=== PATIENT | male | born 1960 | race Caucasian/White ===

== ENCOUNTER 2017-02-25 12:36 | Emergency (ER) | payer OTHER ==
[~2017-02-25] VITALS: Ht 160 cm; Wt 68.0 kg
[2017-02-25 13:20] VITALS: BP 109/68
--- NOTE | 2017-02-25 16:51 | NUR ---
Patient ambulated to bed 05.
--- NOTE | 2017-02-25 17:00 | NUR ---
56/M BIB HERE FOR C/O BLOODY DIARRHEA SINCE THIS AM. PT STATES HE STARTED W/DIARRHEA 2 DAYS AGO AND HAS NOW BECOME BLOODY. PT DENIES ANY MEDICAL HX. DENIES N/V/FEVER. ABD SOFT AND AND NON TENDER. SKIN IS APPEARS SLIGHTLY PALE; AAOX4 WITH EVEN AND STEADY GAIT; LUNGS CLEAR BL; HR EVEN AND REGULAR; PT DENIES ANY FEVER, CP, SOB, OR COUGH AT THIS TIME; VSS; PATIENT POSITIONED FOR COMFORT; HOB ELEVATED; BEDRAILS UP X2; BED DOWN. ER MD MADE AWARE OF PT STATUS.
--- NOTE | 2017-02-25 17:45 | NUR ---
ABHINAV HOPKINS AT BEDSIDE.
[2017-02-25] MEDS ORDERED: NACL 0.9% 1,000 ML IV ONE (18:15)
--- NOTE | 2017-02-25 18:20 | NUR ---
20G IV TO RAC. BLOOD DRAWN FOR LABS. PT MARIA VICTORIA WELL. IV PATENT AND INTACT. IVF GIVEN PER MAR.
[2017-02-25 18:29] LABS: BASOPHILS # (AUTO) 0.1 K/uL (0.00-0.22); BASOPHILS % (AUTO) 1.1 % (0.0-2.0); EOSINOPHILS # (AUTO) 0.2 K/uL (0-0.4); EOSINOPHILS % (AUTO) 3.9 % (0.0-4.0); HEMATOCRIT 45.1 % (36-52); LYMPHOCYTES # (AUTO) 1.3 K/uL (2.0-11.5); LYMPHOCYTES % (AUTO) 26.2 % (20.5-51.1); MEAN CORPUSCULAR HEMOGLOBIN 31 pg (27-31); MEAN CORPUSCULAR HGB CONC 33 g/dL (33-37); MEAN CORPUSCULAR VOLUME 94 fL (80-94); MONOCYTES # (AUTO) 0.6 K/uL (0.8-1.0); MONOCYTES % (AUTO) 12.2 % (1.7-9.3); NEUTROPHILS # (AUTO) 2.9 K/uL (1.8-7.7); NEUTROPHILS % (AUTO) 56.6 % (42.2-75.2); PLATELET COUNT (AUTO) 261 K/uL (140-450); RED CELL DISTRIBUTION WIDTH 12.3 % (11.6-13.7); WHITE BLOOD COUNT (AUTO) 5.1 K/uL (4.8-10.8)
[2017-02-25 18:41] LABS: ANION GAP 9.9 (8-16); CALCIUM 8.5 mg/dL (8.5-10.1); CARBON DIOXIDE 30.6 mmol/L (21-32); CREATININE 0.9 mg/dL (0.6-1.3); POTASSIUM 4.5 mmol/L (3.5-5.1)
[2017-02-25 18:47] LABS: ALBUMIN 3.4 g/dL (3.4-5.0); PHOSPHORUS 3.8 mg/dL (2.5-4.9); TOTAL BILIRUBIN 0.4 mg/dL (0.0-1.0); TOTAL PROTEIN, SERUM 6.6 g/dL (6.4-8.2)
--- NOTE | 2017-02-25 19:07 | NUR ---
REPORT GIVEN TO TOMMY MONTEIRO.
--- NOTE | 2017-02-25 19:19 | NUR ---
Patient discharged with v/s stable. Written and verbal after care instructions given and explained. Patient alert, oriented and verbalized understanding of instructions. Ambulatory with steady gait WITH . All questions addressed prior to discharge. ID band removed. Patient advised to follow up with PMD. Opportunity to ask questions provided and answered.
[2017-02-25 19:21] VITALS: BP 131/73
== END 2017-02-25 19:21 | disposition home or self-care (01) ==
LOC: MED 12:36
DX: R19.7 Diarrhea, unspecified (principal); R50.9 Fever, unspecified; R73.9 Hyperglycemia, unspecified
CPT/HCPCS: 36415; 80053; 82272; 83735; 84100; 85025; 87045; 87070; 87427; 89055; 96360; 99284; J7030

== ENCOUNTER 2019-01-20 15:08 | Emergency (ER) | payer OTHER ==
[~2019-01-20] VITALS: Ht 160 cm; Wt 71.2 kg
[2019-01-20 15:17] VITALS: BP 110/82
--- NOTE | 2019-01-20 15:23 | NUR ---
PATIENT AMBULATED TO BED 8.
[2019-01-20] MEDS ORDERED: KETOROLAC 60 MG/2 ML VIAL IM ONE (15:30)
--- NOTE | 2019-01-20 15:30 | NUR ---
C/O LOW BACK PAIN S/P LIFTING/MOVING "BIG SAFE"; PT STATES HE TOOK A FEW 800MG IBUPROFEN BUT THEY ARE NOT HELPING. PT WALKING VERY SLOW. PAIN 9/10, CONSTANT, INCREASES WITH MOVEMENT. HX: DENIES RX: DENIES, OTC IBUPROFEN
--- NOTE | 2019-01-20 15:56 | NUR ---
Pt refuse Toradol IM medication. Per pt he does not want "shots. Dr Maria notified
--- NOTE | 2019-01-20 16:33 | NUR ---
Dr quiros evaluating AAO pt with family at bedside
[2019-01-20 16:50] VITALS: BP 107/70
--- NOTE | 2019-01-20 16:50 | NUR ---
Patient discharged with v/s stable. Written and verbal after care instructions given and explained. Patient alert, oriented and verbalized understanding of instructions. Ambulatory with steady gait. All questions addressed prior to discharge. ID band removed. Patient advised to follow up with PMD. Rx of [place] given. Patient educated on indication of medication including possible reaction and side effects. Opportunity to ask questions provided and answered.
== END 2019-01-20 16:50 | disposition home or self-care (01) ==
LOC: MED 15:08
DX: M54.5 Low back pain (principal)
CPT/HCPCS: 81002; 99283; J1885

== ENCOUNTER 2022-11-01 18:11 | Emergency (ER) | payer OTHER ==
[~2022-11-01] VITALS: Ht 160 cm; Wt 72.1 kg
[2022-11-01 18:47] VITALS: BP 118/79
[2022-11-01] MEDS ORDERED: LIDOCAINE 5% 1 EA PATCH TP SCH (19:45)
[2022-11-01] MEDS ORDERED: HYDROcodone/APAP 5/325 MG 1 TAB TAB PO ONE (19:45)
--- NOTE | 2022-11-01 19:58 | NUR ---
PATIENT AMBULATED TO CT
--- NOTE | 2022-11-01 20:15 | NUR ---
PATIENT MEDICATED. TOLERATED WELL. TIFFANYR
--- NOTE | 2022-11-01 20:21 | NUR ---
PT TO RADIOLOGY VIA
[2022-11-01] MEDS ORDERED: EMLAC TP (21:36)
[2022-11-01] MEDS ORDERED: ACET-10509 PO (21:36)
[2022-11-01] MEDS ORDERED: NAPR-54 PO (21:36)
[2022-11-01] MEDS ORDERED: METH-1681 PO (21:37)
[2022-11-01 21:49] VITALS: BP 120/79
--- NOTE | 2022-11-01 21:49 | NUR ---
Patient discharged with v/s stable. Written and verbal after care instructions given and explained. Patient alert, oriented and verbalized understanding of instructions. Ambulatory with steady gait. All questions addressed prior to discharge. ID band removed. Patient advised to follow up with PMD. Rx of acetaminophen, lidocaine-prilocaine, robaxin, naprosyn given. Patient educated on indication of medication including possible reaction and side effects. Opportunity to ask questions provided and answered.
== END 2022-11-01 21:49 | disposition home or self-care (01) ==
LOC: MED 18:11
DX: S01.311A Laceration without foreign body of right ear, initial encounter (principal); S16.1XXA Strain of muscle, fascia and tendon at neck level, initial encounter; S09.90XA Unspecified injury of head, initial encounter; V49.88XA Car occupant (driver) (passenger) injured in other specified transport accidents, initial encounter; Y93.89 Activity, other specified; Y92.89 Other specified places as the place of occurrence of the external cause; Y99.8 Other external cause status
CPT/HCPCS: 12013; 70450; 71046; 72125; 90471; 90715; 99284